=== PATIENT | male | born 2000 | race Caucasian/White ===

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

== ENCOUNTER 2022-01-23 13:57 | Emergency (ER) | payer MEDICAID ==
[~2022-01-23] VITALS: Ht 180.3 cm; Wt 102.0 kg
[2022-01-23] MEDS ORDERED: ONDA8TAB13 PO (14:16)
[2022-01-23] MEDS ORDERED: MECL-149 PO (14:16)
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
[2022-01-23] MEDS ORDERED: AMOX500C2 PO (15:00)
[2022-01-23] MEDS ORDERED: PRD20T PO (15:00)
[2022-01-23 15:19] VITALS: BP 138/80
== END 2022-01-23 15:19 | disposition home or self-care (01) ==
LOC: EDUNIT# 13:57 → ER 13:59
DX: F07.81 Postconcussional syndrome (principal); J32.9 Chronic sinusitis, unspecified
CPT/HCPCS: 70450